=== PATIENT | male | born 1975 | race American Indian/Alaskan Native ===

== ENCOUNTER 2017-10-04 09:49 | Emergency (ER) | payer OTHER, MEDICAID ==
[2017-10-04 10:10] VITALS: BP 146/106
[2017-10-04 11:06] LABS: Basophils # (Auto) 0.1 K/mm3 (0.0-0.1); Basophils % (Auto) 0.9 % (0.0-1.8); Eosinophils # (Auto) 0.1 K/mm3 (0.0-0.4); Eosinophils % (Auto) 2.1 % (0.0-4.3); Hematocrit 47.3 % (35.5-45.6); Hemoglobin 16.5 gm/dl (11.8-15.2); Lymphocytes # (Auto) 1.7 K/mm3 (1.2-5.4); Lymphocytes % (Auto) 25.8 % (13.4-35.0); Mean Corpuscular HGB Conc 35 % (32-34); Mean Corpuscular Hemoglobin 30 pg (28-32); Mean Corpuscular Volume 87 fl (84-94); Monocytes # (Auto) 0.5 K/mm3 (0.0-0.8); Platelet Count 268 K/mm3 (140-440); Red Blood Count 5.42 M/mm3 (3.65-5.03); Red Cell Distribution Width 14.1 % (13.2-15.2)
[2017-10-04 11:15] LABS: INR 0.85 (0.87-1.13)
[2017-10-04 11:28] LABS: BUN/Creatinine Ratio 10; Blood Urea Nitrogen 7 mg/dL (9-20); Calcium 9.6 mg/dL (8.4-10.2); Hemolysis Index 29
--- NOTE | 2017-10-04 11:39 | XRay Report ---
ROUTINE CHEST, TWO VIEWS: HISTORY: chest pain. No comparison. A 2-lead pacemaker device is in position. Normal heart size and mediastinal contour. There is minor linear airspace opacity in the lingula and right perihilar region most consistent with scarring or discoid atelectasis. No pleural effusion or pneumothorax. IMPRESSION: No acute cardiopulmonary process identified.
== END 2017-10-04 14:15 | disposition left against medical advice (07) ==
LOC: ED 09:49
DX: R07.9 Chest pain, unspecified (principal); Z53.1 Procedure and treatment not carried out because of patient's decision for reasons of belief and group pressure
CPT/HCPCS: 36415; 71046; 80048; 83880; 84484; 85025; 85610; 85730; 93005; 93010